=== PATIENT | female | born 1990 | race American Indian/Alaskan Native ===

== ENCOUNTER 2016-03-06 04:30 | Inpatient (IN) | payer MEDICAID ==
[2016-03-06] MEDS ORDERED: POLYCILLIN/NS 2 GM/100 ML 100 ML IV ONE ×2 (05:14→05:50)
[2016-03-06] MEDS ORDERED: LACTATED RINGERS 1,000 ML ONE (05:14)
[2016-03-06] MEDS: LACTATED RINGERS 1,000 ML IV SCH ×2 (05:35→08:07)
--- NOTE | 2016-03-06 05:44 | History and Physical Report ---
History of Present Illness Date of examination: 03/06/16 Date of admission: 03/06/16 05:07 Chief complaint: Painful contractions History of present illness: 25-year-old at 36+5 weeks presents in active labor, he has had no care this . In triage, she is noted to be 4 cm dilated cephalic presentation. The patient claims to have been seen at [place] sometime last year and had an ultrasound which put her EDC at 03/29/2015 Oral history of recently moving from the [facility] in [place] in November of this year, appears to not have had care there as well Past History Past Medical History: no pertinent history Past Surgical History: no surgical history [employer] History: chlamydia, gonorrhea. denies: hepatitis B, hepatitis C, HIV, syphilis, trichomonas Social history: single, full code. denies: smoking, alcohol abuse, prescription drug abuse, IV drug use - Obstetrical History Expected Date of Delivery: 03/29/16 Actual Gestation: 36 Week(s) 5 Day(s) : 4 Para: 3 Medications and Allergies Allergies Allergy/AdvReac Type Severity Reaction Status Date / Time No Known Allergies Allergy Unverified 01/21/16 11:59 Home Medications Medication Instructions Recorded Confirmed Last Taken Type Caplet 1 cap PO DAILY 01/21/16 01/21/16 1 Day Ago History Review of Systems Constitutional: no fever, no chills Cardiovascular: no chest pain, no orthopnea, no syncope, no lightheadedness, no shortness of breath, no dyspnea on exertion Respiratory: no shortness of breath, no dyspnea on exertion Gastrointestinal: abdominal pain (Painful contractions), no nausea, no vomiting Genitourinary: no vaginal bleeding, no leakage of fluid - Physical Exam Cardiovascular: Regular rate, Normal S1, Normal S2 Lungs: Positive: Clear to auscultation, Normal air movement Abdomen: Positive: normal appearance, soft. Negative: distention, tenderness, guarding, rigidity Genitourinary (Female): Positive: normal external genitalia Uterus: Positive: enlarged (EFW ~ 3500). Negative: tender Extremities: Positive: normal - Obstetrical Cervical Dilatation: 4 (per RN exam) Results All other labs normal. Assessment and Plan A: 25 y/o at 35+6 wks in active labour P: -Admit -Routine labs - labs -UDS -GBS prophylaxis -Epidural prn -Anticipate - Patient Problems (1) 35 to 36 weeks gestation of Current Visit: Yes Status: Acute (2) No care in current Current Visit: Yes Status: Acute (3) Active labor Current Visit: Yes Status: Acute
[2016-03-06] MEDS ORDERED: BRETHINE IVP PRN (05:50)
[2016-03-06] MEDS ORDERED: XYLOCAINE 2% INFILTRATI ONE (05:50)
[2016-03-06] MEDS ORDERED: MINERAL OIL PO PRN (05:50)
[2016-03-06] MEDS ORDERED: ZOFRAN IV PRN ×2 (05:50→10:11)
[2016-03-06] MEDS ORDERED: ePHEDrine SULFATE IV PRN ×2 (05:50→08:00)
[2016-03-06] MEDS ORDERED: BRETHINE SUB-Q PRN (05:50)
[2016-03-06] MEDS ORDERED: SUBLIMAZE IV PRN (05:50)
[2016-03-06] MEDS ORDERED: PITOCin/NS 20 UNIT/1000ML DRIP 1,000 ML IV SCH ×2 (06:00→11:00)
[2016-03-06] MEDS ORDERED: PITOCin/NS 30 UNIT/500ML 500 ML IV SCH ×2 (06:00)
[2016-03-06 06:24] LABS: Hematocrit 31.9 % (30.3-42.9); Hemoglobin 10.1 gm/dl (10.1-14.3); Mean Corpuscular HGB Conc 32 % (30-34); Mean Corpuscular Volume 81 fl (79-97); Platelet Count 179 K/mm3 (140-440); Red Blood Count 3.95 M/mm3 (3.65-5.03); Red Cell Distribution Width 14.6 % (13.2-15.2); White Blood Count 11.7 K/mm3 (4.5-11.0)
[2016-03-06 06:36] LABS: Urine Drugs of Abuse Note Disclamer
[2016-03-06 06:37] LABS: Mean Corpuscular Hemoglobin 26 pg (28-32)
[2016-03-06 06:59] LABS: HIV-1 Antigen p24 Non React (Non React); HIVR-1/2 Ab Non React (Non React)
[2016-03-06] MEDS ORDERED: ePHEDrine SULFATE ONE (07:17)
--- NOTE | 2016-03-06 07:37 | Anesthesia Consultation ---
Anesthesia Consult and Med Hx Date of service: 03/06/16 - Airway Anesthetic Teeth Evaluation: Good ROM Head & Neck: Adequate Mental/Hyoid Distance: Adequate Mallampati Class: Class II Intubation Access Assessment: Probably Good - Pre-Operative Health Status ASA Pre-Surgery Classification: ASA2 Proposed Anesthetic Plan: Epidural, Spinal - Pulmonary Hx Asthma: No COPD: No Hx Pneumonia: No - Cardiovascular System Hx Hypertension: No - Central Nervous System Hx Seizures: No Hx Psychiatric Problems: No - Endocrine Hx Renal Disease: No Hx End Stage Renal Disease: No Hx Hypothyroidism: No Hx Hyperthyroidism: No - Hematic Hx Anemia: No Hx Sickle Cell Disease: No (trait) - Other Systems Hx Alcohol Use: No
[2016-03-06] MEDS ORDERED: NARCAN 2 MG/2 ML IV PRN (08:00)
[2016-03-06] MEDS: fentaNYL-BUPIV 2 MCG/ML-0.125% 100 ML EPIDURAL SCH ×2 (08:23→11:08)
--- NOTE | 2016-03-06 09:36 | Ultrasound Report ---
Limited OB ultrasound: There is a galvin intrauterine gestation in cephalic position with a heart rate 117 beats per minute. The estimated gestational age is 37 weeks 6 days. No other information supplied.
[2016-03-06] MEDS ORDERED: POLYCILLIN/NS 1 GM/50 ML 50 ML IV SCH (09:51)
--- NOTE | 2016-03-06 10:10 | Procedure Note ---
OB Delivery Note - Delivery Date of Delivery: 03/06/16 Surgeon: OSBALDO CULVER Estimated blood loss: 200cc - Vaginal Delivery presentation: vertex Delivery position: OA Intrapartum events: no care Delivery induction: none Delivery monitor: external FHT, external uterine Route of delivery: Delivery placenta: spontaneous Delivery cord: 3 umbilical vessels Episiotomy: none Delivery laceration: 2nd degree Delivery repair: vicryl Anesthesia: epidural - A at 1 minute: 8 at 5 minutes: 9 Infant Gender: Male (Del @ 09:59 AM, weight is 7# 15 or 3609 gms)
[2016-03-06] MEDS ORDERED: DERMOPLAST TP PRN (10:11)
[2016-03-06] MEDS ORDERED: PHENERGAN PO PRN (10:11)
[2016-03-06] MEDS ORDERED: BENADRYL PO PRN (10:11)
[2016-03-06] MEDS ORDERED: LANSINOH TP PRN (10:11)
[2016-03-06] MEDS ORDERED: DULCOLAX PR PRN (10:11)
[2016-03-06] MEDS ORDERED: NORCO 5/325 PO PRN (10:11)
[2016-03-06] MEDS ORDERED: TYLENOL PO PRN (10:11)
[2016-03-06] MEDS ORDERED: PHENERGAN PR PRN (10:11)
[2016-03-06] MEDS ORDERED: ANUCORT-HC PR PRN (10:11)
[2016-03-06] MEDS ORDERED: MILK OF MAGNESIA PO PRN (10:11)
[2016-03-06] MEDS ORDERED: TUCKS PAD TP PRN (10:11)
[2016-03-06] MEDS ORDERED: SENOKOT S PO SCH (11:00)
[2016-03-06] MEDS ORDERED: SODIUM CHLORIDE FLUSH SYRINGE 10 ML IV NR (11:00)
[2016-03-06] MEDS: MOTRIN PO SCH ×2 (18:10→23:00)
[2016-03-06] MEDS ORDERED: BOOSTRIX IM ONE (18:12)
[2016-03-07] MEDS: FEOSOL PO SCH ×3 (01:30→22:16)
[2016-03-07] MEDS: MOTRIN PO SCH ×3 (05:31→18:01)
[2016-03-07] MEDS ORDERED: BOOSTRIX IM ONE (06:00)
[2016-03-07] MEDS ORDERED: M-M-R II VACCINE SUB-Q ONE (06:00)
[2016-03-07 06:46] LABS: Hematocrit 27.8 % (30.3-42.9); Hemoglobin 8.9 gm/dl (10.1-14.3)
--- NOTE | 2016-03-07 08:33 | Progress Note ---
Assessment and Plan - Patient Problems (1) (normal spontaneous vaginal delivery) Diagnosis Date: 03/07/16 Current Visit: Yes Status: Resolved Plan to address problem: A: S/P - PPD #1 Doing well No care P: May go home today Subjective - Subjective Date of service: 03/07/16 Principal diagnosis: s/p - PPD #1 Interval history: Pt is feeling well without complaints. Bleeding improved. Patient reports: appetite normal, voiding normally, pain well controlled, flatus , ambulating normally : doing well, nursing well, bottle feeding Objective - Vital Signs Latest vital signs: Vital Signs Temp Pulse Pulse Resp BP BP BP 03/07/16 04:10 97.7 F 88 18 114/74 03/07/16 00:15 98.4 F 78 20 108/58 03/06/16 16:18 98.4 F 72 18 121/66 03/06/16 13:45 20 03/06/16 13:20 98 F 95 H 20 109/72 03/06/16 11:48 81 125/68 03/06/16 11:34 73 126/68 03/06/16 11:18 85 138/80 03/06/16 11:03 94 H 139/80 03/06/16 10:48 87 135/81 03/06/16 10:34 96 H 134/75 03/06/16 10:19 80 152/93 03/06/16 10:04 79 143/80 03/06/16 09:41 87 124/72 03/06/16 09:26 74 03/06/16 09:21 79 03/06/16 09:16 83 03/06/16 09:13 93 H 131/71 03/06/16 09:11 76 03/06/16 09:06 72 03/06/16 09:01 78 03/06/16 08:56 86 03/06/16 08:51 76 03/06/16 08:46 92 H 03/06/16 08:42 83 122/65 03/06/16 08:41 91 H 03/06/16 08:36 79 03/06/16 08:31 71 Pulse Ox 03/07/16 04:10 03/07/16 00:15 03/06/16 16:18 03/06/16 13:45 03/06/16 13:20 03/06/16 11:48 03/06/16 11:34 03/06/16 11:18 03/06/16 11:03 03/06/16 10:48 03/06/16 10:34 03/06/16 10:19 03/06/16 10:04 03/06/16 09:41 03/06/16 09:26 100 03/06/16 09:21 100 03/06/16 09:16 100 03/06/16 09:13 03/06/16 09:11 100 03/06/16 09:06 100 03/06/16 09:01 100 03/06/16 08:56 100 03/06/16 08:51 100 03/06/16 08:46 100 03/06/16 08:42 03/06/16 08:41 100 03/06/16 08:36 99 03/06/16 08:31 99 Intake and Output 03/06/16 03/07/16 03/07/16 22:59 06:59 14:59 Intake Total 485 120 Output Total 1400 400 Balance -915 -280 Intake: IV 125 PITOCin/NS 20 UNIT/1000ML 125 DRIP 1,000 ML @ 125 mls/ hr IV DIRECT SHAKIR Rx#: [id number] Oral 360 120 Output: Urine 1400 400 Void 1400 400 Other: Total, Intake Amount 360 120 Total, Output Amount 700 400 # Bowel Movements 0 - Exam Breasts: Present: deferred Cardiovascular: Present: Regular rate Lungs: Present: Clear to auscultation Abdomen: Present: normal appearance, soft Uterus: Present: normal, firm, fundal height below umbilicus Extremities: Present: normal - Labs Labs: Abnormal lab results 03/07/16 Range/Units 05:45 Hgb 8.9 L (10.1-14.3) gm/dl Hct 27.8 L (30.3-42.9) % Laboratory Tests 03/06/16 03/06/16 03/06/16 05:35 05:35 05:35 WBC 11.7 H RBC 3.95 Hgb 10.1 Hct 31.9 MCV 81 MCH 26 L MCHC 32 RDW 14.6 Plt Count 179 Urine Opiates Screen Urine Methadone Screen Ur Barbiturates Screen Ur Phencyclidine Scrn Ur Amphetamines Screen U Benzodiazepines Scrn Urine Cocaine Screen U Marijuana (THC) Screen Drugs of Abuse Note RPR Nonreactive Hep Bs Antigen Hepatitis C Antibody HIV 1&2 Antibody Rapid HIV P24 Antigen Rubella IgG Antibody Blood Type O POSITIVE Antibody Screen Negative 03/06/16 03/06/16 03/06/16 05:35 05:35 05:35 WBC RBC Hgb Hct MCV MCH MCHC RDW Plt Count Urine Opiates Screen Urine Methadone Screen Ur Barbiturates Screen Ur Phencyclidine Scrn Ur Amphetamines Screen U Benzodiazepines Scrn Urine Cocaine Screen U Marijuana (THC) Screen Drugs of Abuse Note RPR Hep Bs Antigen Non-reactive Hepatitis C Antibody Non-reactive HIV 1&2 Antibody Rapid Non react HIV P24 Antigen Non react Rubella IgG Antibody Immune Blood Type Antibody Screen 03/06/16 03/07/16 06:05 05:45 WBC RBC Hgb 8.9 L Hct 27.8 L MCV MCH MCHC RDW Plt Count Urine Opiates Screen Presumptive negative Urine Methadone Screen Presumptive negative Ur Barbiturates Screen Presumptive negative Ur Phencyclidine Scrn Presumptive negative Ur Amphetamines Screen Presumptive negative U Benzodiazepines Scrn Presumptive negative Urine Cocaine Screen Presumptive negative U Marijuana (THC) Screen Presumptive negative Drugs of Abuse Note Disclamer RPR Hep Bs Antigen Hepatitis C Antibody HIV 1&2 Antibody Rapid HIV P24 Antigen Rubella IgG Antibody Blood Type Antibody Screen
--- NOTE | 2016-03-07 09:57 | Discharge Summary ---
Providers - Providers Date of Admission: 03/06/16 05:07 Date of discharge: 03/07/16 Attending physician: PAOLA PAREKH MD Primary care physician: PAOLA PAREKH MD Hospitalization Reason for admission: active labor, IUP at term Delivery: Episiotomy: none Laceration: 2nd degree Incision: normal Other procedures: none complications: none Discharge diagnosis: IUP at term delivered [place] baby: male Hospital course: Unremarkable. Condition at discharge: Good Disposition: DISCHARGED TO HOME OR SELFCARE - Discharge Diagnoses (1) (normal spontaneous vaginal delivery) Status: Resolved Plan - Discharge Medications Prescriptions: Ferrous Sulfate [Feosol 325 MG tab] 325 mg PO BID #60 tablet HYDROcodone/APAP 5-325 [[place] 5/325] 1 each PO Q6HR PRN #30 tablet PRN Reason: Pain Ibuprofen [Motrin 600 MG tab] 600 mg PO Q8H PRN #30 tablet PRN Reason: Pain Multivitamin with Iron [Multivitamins with Iron] 1 each PO DAILY #30 tablet - Provider Discharge Summary Activity: routine, no sex for 6 weeks, no heavy lifting 4 weeks, no strenuous exercise Diet: routine Instructions: routine Additional instructions: [] Smoking cessation referral if applicable(refer to patient education folder for contact #) [] Refer to [facility] Booklet Call your doctor immediately for: * Fever > 100.5 * Heavy vaginal bleeding ( >1 pad per hour) * Severe persistent headache * Shortness of breath * Reddened, hot, painful area to leg or breast * Drainage or odor from incision. * Keep incision clean and dry at all times and follow doctor's instructions regarding bathing/showering - Follow up plan Follow up: PAOLA SANTOS MD [Primary Care Provider] - 6 Weeks
[2016-03-07] MEDS ORDERED: DEPO-PROVERA (CONTRACEPTION) IM ONE ×2 (09:59→17:57)
[2016-03-07] MEDS ORDERED: PRENATAL VITAMIN PO SCH (10:00)
[2016-03-07] MEDS ORDERED: FLUARIX QUAD 2016-2017(36 MOS+) IM ONE (12:00)
[2016-03-07] MEDS: COLACE PO SCH ×2 (12:39→22:16)
[2016-03-08] MEDS: MOTRIN PO SCH ×2 (00:05→05:31)
[2016-03-08 12:46] VITALS: BP 119/65
== END 2016-03-08 14:30 | disposition home or self-care (01) | DRG 775 ==
LOC: TRG 04:30 → LD 05:07 → OB 13:35
PROVIDERS: ADMIT Obstetrics & Gynecology; ATTEND Obstetrics & Gynecology
PROC: 10E0XZZ Delivery of Products of Conception, External Approach (ICD-10-PCS; principal; 2016-03-06)
PROC: 0KQM0ZZ Repair Perineum Muscle, Open Approach (ICD-10-PCS; 2016-03-06)
PROC: 3E0S3CZ (ICD-10-PCS; 2016-03-06)
PROC: 00HU33Z Insertion of Infusion Device into Spinal Canal, Percutaneous Approach (ICD-10-PCS; 2016-03-06)
PROC: 3E0234Z Introduction of Serum, Toxoid and Vaccine into Muscle, Percutaneous Approach (ICD-10-PCS; 2016-03-07)
DX: O60.14X0 Preterm labor third trimester with preterm delivery third trimester, not applicable or unspecified (principal); O70.1 Second degree perineal laceration during delivery; O09.33 Supervision of pregnancy with insufficient antenatal care, third trimester; Z3A.36 36 weeks gestation of pregnancy; Z23 Encounter for immunization; Z37.0 Single live birth; Z86.19 Personal history of other infectious and parasitic diseases; Z79.899 Other long term (current) drug therapy
CPT/HCPCS: 36415; 76815; 80307; 85014; 85018; 85027; 86592; 86706; 86762; 86803; 86850; 86900; 86901; 87806; 90471; 90686; 90715; G0008; J0290; J1050; J2590; J3010; J7120

== ENCOUNTER 2017-08-30 18:37 | Outpatient (CLI) | payer MEDICAID ==
[2017-08-30 19:20] VITALS: BP 123/58
== END 2017-08-30 20:06 | disposition home or self-care (01) ==
LOC: TRG 18:37
PROVIDERS: ATTEND Obstetrics & Gynecology
DX: O47.1 False labor at or after 37 completed weeks of gestation (principal); Z87.891 Personal history of nicotine dependence; Z3A.37 37 weeks gestation of pregnancy
CPT/HCPCS: 59025

== ENCOUNTER 2017-11-15 02:04 | Emergency (ER) | payer MEDICAID | END 2017-11-15 02:46 | disposition left against medical advice (07) | LOC: ED 02:04 | DX: R07.9 Chest pain, unspecified (principal); Z53.21 Procedure and treatment not carried out due to patient leaving prior to being seen by health care provider | CPT/HCPCS: 93005; 93010 ==

== ENCOUNTER 2017-11-25 22:55 | Emergency (ER) | payer MEDICAID ==
[2017-11-25] MEDS ORDERED: NACL 0.9% 1000 ML 1,000 ML IV ONE (23:48)
[2017-11-26 00:04] LABS: Basophils # (Auto) 0.1 K/mm3 (0.0-0.1); Basophils % (Auto) 1.4 % (0.0-1.8); Eosinophils # (Auto) 0.1 K/mm3 (0.0-0.4); Eosinophils % (Auto) 0.7 % (0.0-4.3); Hematocrit 34.9 % (30.3-42.9); Hemoglobin 11.9 gm/dl (10.1-14.3); Lymphocytes # (Auto) 3.1 K/mm3 (1.2-5.4); Lymphocytes % (Auto) 44.5 % (13.4-35.0); Mean Corpuscular HGB Conc 34 % (30-34); Mean Corpuscular Hemoglobin 28 pg (28-32); Mean Corpuscular Volume 83 fl (79-97); Monocytes # (Auto) 0.6 K/mm3 (0.0-0.8); Monocytes % (Auto) 8.4 % (0.0-7.3); Platelet Count 217 K/mm3 (140-440); Red Blood Count 4.21 M/mm3 (3.65-5.03); Red Cell Distribution Width 17.6 % (13.2-15.2)
[2017-11-26 00:18] LABS: Alanine Aminotransferase 11 units/L (7-56); Albumin 4.6 g/dL (3.9-5); BUN/Creatinine Ratio 14; Blood Urea Nitrogen 11 mg/dL (7-17); Calcium 9.8 mg/dL (8.4-10.2); Hemolysis Index 4
[2017-11-26 01:50] LABS: Bacteria,Urine 1+ /HPF (Negative); Bilirubin,Urine NEG (Negative); Blood,Urine LG (Negative); Mucus,Urine 3+ /HPF; Urobilinogen,Urine < 2.0 mg/dL (<2.0)
[2017-11-26 01:54] LABS: Color,Urine Yellow (Yellow)
[2017-11-26] MEDS ORDERED: ULTRAM PO ONE (02:51)
[2017-11-26] MEDS ORDERED: TORADOL IM ONE (02:51)
--- NOTE | 2017-11-26 03:20 | Emergency Department Report ---
ED Abdominal Pain HPI - General Chief Complaint: Abdominal Pain Stated Complaint: ABDOMINAL PAIN Time Seen by Provider: 11/26/17 02:01 Source: patient Mode of arrival: Ambulatory Limitations: No Limitations - History of Present Illness Initial Comments: 27-year-old female with lower abdominal pain x 1 day. Patient reports onset of vaginal bleeding today as well. States today is the first day of her menstrual period. States she normally has cramping with her periods, however states today 's pain was worse. Denies nausea vomiting. Patient states she normally takes Midol but did not have any at home MD Complaint: abdominal pain -: days(s) (1) Location: suprapubic Radiation: none Migration to: no migration Severity: moderate Severity scale (0 -10): 6 Quality: cramping Consistency: constant Improves With: nothing Worsens With: nothing Associated Symptoms: denies: nausea, vomiting, dysuria Treatments Prior to Arrival: other (none) - Related Data Home Medications Medication Instructions Recorded Confirmed Last Taken Caplet 1 cap PO DAILY 01/21/16 03/06/16 02/28/16 09:00 Previous Rx's Medication Instructions Recorded Last Taken Type HYDROcodone/APAP 5-325 [[place] 1 each PO Q6HR PRN #30 tablet 03/06/16 Unknown Rx 5/325] Ibuprofen [Motrin 600 MG tab] 600 mg PO Q8H PRN #30 tablet 03/06/16 Unknown Rx Multivitamin with Iron 1 each PO DAILY #30 tablet 03/06/16 Unknown Rx [Multivitamins with Iron] Ferrous Sulfate [Feosol 325 MG tab] 325 mg PO BID #60 tablet 03/07/16 Unknown Rx Naproxen [Naprosyn] 500 mg PO BID #20 tablet 11/26/17 Unknown Rx Phenazopyridine [Pyridium] 100 mg PO TID #6 tab 11/26/17 Unknown Rx Sulfamethoxazole/Trimethoprim 1 each PO BID #6 tablet 11/26/17 Unknown Rx [Bactrim DS TAB] Allergies Allergy/AdvReac Type Severity Reaction Status Date / Time No Known Allergies Allergy Verified 03/06/16 06:42 ED Review of Systems ROS: Stated complaint: ABDOMINAL PAIN Other details as noted in HPI Comment: All other systems reviewed and negative Constitutional: denies: chills, fever Gastrointestinal: abdominal pain. denies: nausea, vomiting Genitourinary: other (vaginal bleeding reported). denies: dysuria, discharge ED Past Medical Hx - Past Medical History Previous Medical History?: No Hx Hypertension: No Hx Congestive Heart Failure: No Hx Diabetes: No Hx Deep Vein Thrombosis: No Hx Renal Disease: No Hx Sickle Cell Disease: No Hx Seizures: No Hx Asthma: No Hx COPD: No Hx HIV: No - Surgical History Past Surgical History?: No - Social History Smoking Status: Current Some Day Smoker Substance Use Type: None - Medications Home Medications: Home Medications Medication Instructions Recorded Confirmed Last Taken Type Caplet 1 cap PO DAILY 01/21/16 03/06/16 02/28/16 09:00 History HYDROcodone/APAP 5-325 [[place] 1 each PO Q6HR PRN #30 tablet 03/06/16 Unknown Rx 5/325] Ibuprofen [Motrin 600 MG tab] 600 mg PO Q8H PRN #30 tablet 03/06/16 Unknown Rx Multivitamin with Iron 1 each PO DAILY #30 tablet 03/06/16 Unknown Rx [Multivitamins with Iron] Ferrous Sulfate [Feosol 325 MG tab] 325 mg PO BID #60 tablet 03/07/16 Unknown Rx Naproxen [Naprosyn] 500 mg PO BID #20 tablet 11/26/17 Unknown Rx Phenazopyridine [Pyridium] 100 mg PO TID #6 tab 11/26/17 Unknown Rx Sulfamethoxazole/Trimethoprim 1 each PO BID #6 tablet 11/26/17 Unknown Rx [Bactrim DS TAB] ED Physical Exam - General Limitations: No Limitations General appearance: alert, in no apparent distress, other (patient asleep on a stretcher, had to arouse to awaken) - Head Head exam: Present: atraumatic, normocephalic - Eye Eye exam: Present: normal appearance - ENT ENT exam: Present: mucous membranes moist - Neck Neck exam: Present: normal inspection - Respiratory Respiratory exam: Present: normal lung sounds bilaterally. Absent: respiratory distress - Cardiovascular Cardiovascular Exam: Present: normal rhythm, bradycardia - GI/Abdominal GI/Abdominal exam: Present: soft, tenderness (mild suprapubic tenderness present ) - Extremities Exam Extremities exam: Present: normal inspection - Neurological Exam Neurological exam: Present: alert, oriented X3 - Psychiatric Psychiatric exam: Present: normal affect, normal mood - Skin Skin exam: Present: warm, dry, intact, normal color. Absent: rash ED Course Vital Signs 11/25/17 11/26/17 23:41 02:08 Temperature 97.7 F Pulse Rate 55 L 58 L Respiratory 18 17 Rate Blood Pressure 114/58 Blood Pressure 112/62 [Right] O2 Sat by Pulse 100 100 Oximetry ED Medical Decision Making - Lab Data Result diagrams: 11/25/17 23:54 11/25/17 23:54 - Medical Decision Making 27-year-old female with menstrual cramps. UA shows evidence of UTI, will prescribes antibiotics for this. test negative. Will give anti- inflammatories - Differential Diagnosis menstrual cramps, UTI, Critical care attestation.: If time is entered above; I have spent that time in minutes in the direct care of this critically ill patient, excluding procedure time. ED Disposition Clinical Impression: Dysmenorrhea, UTI (urinary tract infection) Disposition: TO HOME OR SELFCARE Is pt being admited?: No Condition: Stable Instructions: Dysmenorrhea (ED), Urinary Tract Infection in Women (ED) Prescriptions: Naproxen [Naprosyn] 500 mg PO BID #20 tablet Phenazopyridine [Pyridium] 100 mg PO TID #6 tab Sulfamethoxazole/Trimethoprim [Bactrim DS TAB] 1 each PO BID #6 tablet Referrals: LEIF PARRISH MD [Primary Care Provider] - 3-5 Days Time of Disposition: 03:21
[2017-11-26 03:45] VITALS: BP 103/65
== END 2017-11-26 03:52 | disposition home or self-care (01) ==
LOC: ED 22:55
DX: N39.0 Urinary tract infection, site not specified (principal); N94.6 Dysmenorrhea, unspecified; F17.200 Nicotine dependence, unspecified, uncomplicated
CPT/HCPCS: 36415; 80053; 81001; 84703; 85025; 99283; J1885